=== PATIENT | female | born 1960 | race Two or more races ===

== ENCOUNTER 2022-02-02 05:04 | Emergency (ER) | payer SELFPAY ==
[~2022-02-02] VITALS: Ht 160 cm; Wt 63.3 kg
[2022-02-02 05:15] VITALS: BP 124/74
== END 2022-02-02 10:57 | disposition left against medical advice (07) ==
LOC: ER 05:04
DX: S61.411A Laceration without foreign body of right hand, initial encounter (principal); M79.10 Myalgia, unspecified site; Z53.21 Procedure and treatment not carried out due to patient leaving prior to being seen by health care provider; V43.52XA Car driver injured in collision with other type car in traffic accident, initial encounter; Y93.89 Activity, other specified; Y92.410 Unspecified street and highway as the place of occurrence of the external cause; Y99.8 Other external cause status